=== PATIENT | female | born 1990 | race Caucasian/White ===

== ENCOUNTER 2025-08-25 15:46 | Emergency (ER) | payer OTHER, SELFPAY ==
[2025-08-25 15:48] VITALS: BP 128/87
--- NOTE | 2025-08-25 16:24 | ED.GENMED ---
History of Present Illness
General
Chief Complaint: Abdominal Pain
Time Seen by Provider: 08/25/25 16:18
History of Present Illness
History of Present Illness:
Patient is a 35-year-old woman presenting to the emergency room with abdominal pain for the past 4 to 5 days. Patient states that she started her normal job that is required heavy lifting. The past 5 states she has had right upper quadrant
abdominal pain that is worse with movement. It is not related to food or exertion. No shortness of breath nausea vomiting. She does have intermittent diarrhea at baseline. No recent travel or illnesses. No leg swelling hemoptysis history of
malignancy OCP use. No vaginal discharge or bleeding. Last period was a few months ago.
Past History
Past History
ED Past Medical History: None
ED Past Surgical History: None
Social History
Tobacco: Non-smoker
Alcohol: None
Drug: None
Personal:
Living: with family
Employment: Employed
Family History
Family History: Other (Noncontributory)
Phy Exam
Physical Exam
Physical Exam:
GENERAL: in no acute distress
HEENT: normocephalic, extraocular movements intact, moist oral mucosa
NECK: normal inspection
RESPIRATORY: no respiratory distress, clear to auscultation bilaterally
CARDIOVASCULAR: regular rate and rhythm
ABDOMEN/: soft, non-distended, very mildly tender to the right upper/mid quadrant, no rebound or guarding
EXTREMITIES: non-tender, no edema/swelling
NEUROLOGIC: awake and alert, moves all extremities
SKIN: warm
Course
Orders/Labs/Results
Orders:
Orders
08/25/25 16:23
Electrocardiogram (*1) Urgent
Reason for Study: Abdominal Pain
EKG- Treatment ONCE
Ketorolac [Toradol] 15 mg IV NOW STA
08/25/25 16:24
Test Result ONCE
08/25/25 16:58
Complete Blood Count/With Diff Urgent
Comprehensive Metabolic Panel Urgent
HCG, Urine Qualitative Screen Urgent
Date Specimen was Collected: 08/25/25
Time Specimen was Collected: 16:43
Lipase Urgent
Urinalysis Reflex To Culture Urgent
Date Specimen was Collected: 08/25/25
Time Specimen was Collected: 16:43
Urine Microscopic Reflex Cult Urgent
Abnormal Lab Results
08/25/25
16:58
MCHC 32.7 L g/dL
(33.0-37.0)
Carbon Dioxide 21 L mmol/L
(22-30)
ALT 43 H U/L
(0-35)
Urine Bacteria (Reflex) Few A
(Negative)
Urine Albumin (Reflex) 1+ A
(Neg - Trace)
08/25/25 16:58
08/25/25 16:58
Vital Signs
Initial and Last Documented VS:
Initial Vital Signs
Temp Pulse Resp BP Pulse Ox
97.5 F 68 16 128/87 98
08/25/25 15:48 08/25/25 15:48 08/25/25 15:48 08/25/25 15:48 08/25/25 15:48
Last Documented Vital Signs
Temp Pulse Resp BP Pulse Ox
97.5 F 68 16 128/82 97
08/25/25 15:48 08/25/25 15:48 08/25/25 15:48 08/25/25 17:00 08/25/25 17:00
MDM/Problems Addressed
Differential Diagnosis Includes:
Patient is a 35-year-old woman presenting to the emergency department with right upper quadrant abdominal pain for the past 4 to 5 days after starting a new job and lifting heavy things. On arrival vitals unremarkable exam does show very mild
reproducible tenderness to the right upper/mid quadrant. Differential consists of muscular pain versus gallbladder etiology versus pancreatitis though less likely. Will check blood work including CMP lipase. Will check urinalysis. Will check EKG
as well.
*Pulse Oximetry
SaO2: 98
Oxygen Mode of Delivery: Room air
Patient hypoxic: no
*Critical Care Note
Total Time (30-74mins, 75-104mins- exclusive of procedures): Not Applicable
Update Note
Update Note:
On reevaluation pain is much improved. Blood work reassuring. Will discharge at this time. Return precautions given.
ED Attending Note
-
Portions of this chart may have been created with voice recognition software.� Occasional wrong word or��sound alike� substitutions may have occurred due to the inherent limitations of voice recognition software.
Discharge Plan
Departure
Patient Disposition: Home (Routine Discharge)
Date of Disposition: 08/25/25
Time of Disposition: 17:42
Patient with high blood pressure during this ER visit?: No
Discharge Problem:
Abdominal pain
Instructions: Abdominal Pain
Prescriptions:
No Action
clonidine HCl 0.1 mg tablet
0.1 mg PO TID PRN (Reason: Anxiety)
fluoxetine 10 mg capsule
20 mg PO QPM
gabapentin 300 mg capsule
300 mg PO TID
aripiprazole 5 mg tablet
5 mg PO QPM
Referrals:
Rose Min MD [Family Provider, Internal Medicine]
Stand Alone Forms: Return to Work
Activity Restrictions/Additional Instructions:
Thank You for choosing [facility].
It was a pleasure meeting you and taking part in your care.
You were seen in the Emergency Department today for abdominal pain. While you were here we performed blood work, which was reassuring.
We would like for you to follow up with your primary care physician for further evaluation. If you experience fever, worsening of your symptoms, or develop any other new or concerning symptoms, please return to the Emergency Department immediately.
Please see the attached sheet for additional information.
Interventions
Interventions:
*Risk Screen - Suicide Last Done: 08/25/25 15:48
*General Assessment Last Done: 08/25/25 17:08
*Neglect/Abuse Screening Last Done: 08/25/25 15:48
*ED COVID-19 Vaccine History Last Done: 08/25/25 17:08
*ED Influenza Vaccine History Last Done: 08/25/25 17:08
[facility] Fall Risk Assessment Tool Last Done: 08/25/25 17:08
[facility] Assessment Last Done: 08/25/25 17:05
Discharge Date and Time
Print Language: HEBREW
[2025-08-25] MEDS: TORADOL 15 MG IV (16:46)
[2025-08-25 17:00] VITALS: BP 128/82
[2025-08-25 17:07] LABS: HCG, Urine Qualitative Screen Negative; Urine Character Slightly Cloudy (Clear)
[2025-08-25 17:08] VITALS: BMI 30.3
[2025-08-25 17:10] LABS: Hematocrit 44.3 % (37.0-47.0); Hemoglobin 14.5 g/dL (12.0-16.0); Mean Corp Hgb Conc. 32.7 g/dL (33.0-37.0); Mean Corpuscular Volume 91.0 fL (81.0-99.0); Nucleated Red Blood Cells % 0 %; Platelet Count 207 10^3/uL (130-400); Red Cell Dist. Width 13.5 % (11.5-14.5)
[2025-08-25 17:17] LABS: Urine Red Blood Cell 0-2 /HPF (0-2); Urine White Cell 0-2 /HPF (0-5)
[2025-08-25 17:28] LABS: ALT (SGPT) 43 U/L (0-35); AST (SGOT) 34 U/L (14-36); Albumin 4.6 g/dl (3.5-5.0); Alkaline Phosphatase 97 U/L (38-126); Blood Urea Nitrogen 13 mg/dl (7-17); Calcium 9.4 mg/dl (8.4-10.2); Carbon Dioxide 21 mmol/L (22-30); Chloride 106 mmol/L (98-107); Estimated Creatinine Clearance > 125 ml/min; Glucose 99 mg/dl (70-99); Lipase 123 U/L (23-300); Potassium 4.0 mmol/L (3.5-5.1); Sodium 137 mmol/L (135-145); Total Protein 7.6 g/dl (6.3-8.2); eGFR > 60.00
== END 2025-08-25 17:47 | disposition home or self-care (01) ==
LOC: EMR 15:46
PROVIDERS: EMERGENCY PHYSICIAN Student in an Organized Health Care Education/Training Program; FAMILY PHYSICIAN Student in an Organized Health Care Education/Training Program
DX: R10.11 Right upper quadrant pain (principal)
CPT/HCPCS: 99284; 96374; 80053; 81003; 81015; 81025; 83690; 85025; 93005